=== PATIENT | male | born 1980 | race Caucasian/White ===

== ENCOUNTER → 2024-02-04 20:33 | Outpatient (REF) | payer OTHER, SELFPAY | LOC: MRI 3T 20:33 | PROVIDERS: ATTENDING PHYSICIAN Student in an Organized Health Care Education/Training Program; FAMILY PHYSICIAN Internal Medicine | DX: M25.562 Pain in left knee (principal) | CPT/HCPCS: 73721 ==

== ENCOUNTER → 2024-08-23 17:10 | Outpatient (REF) | payer OTHER, SELFPAY | LOC: HWRAD 17:10 | PROVIDERS: ATTENDING PHYSICIAN Internal Medicine | DX: M79.604 Pain in right leg (principal) | CPT/HCPCS: 73590 ==